=== PATIENT | male | born 1980 | race Caucasian/White ===

== ENCOUNTER 2016-09-11 11:44 | Emergency (ER) | payer SELFPAY ==
[~2016-09-11] VITALS: Ht 172.7 cm; Wt 63.6 kg
[~2016-09-11 11:44] MED LIST: FLEXERIL10 MG PO; LORTAB 5/500 501 TAB PO; NAPROSYN500 MG PO; NO HOME MEDICATIONS; NORCO 325 MG-51 TAB PO; TRAZODONE50 MG PO
[2016-09-11 11:52] VITALS: BP 129/87; PULSE 92; TEMP 98
[2016-09-11] MEDS ORDERED: PREDNISONE20 MG PO (13:23)
== END 2016-09-11 13:39 | disposition home or self-care (01) ==
LOC: COL.ER 11:44
DX: M25.512 Pain in left shoulder (principal); M54.12 Radiculopathy, cervical region; G89.29 Other chronic pain
CPT/HCPCS: J1885

== ENCOUNTER 2017-08-25 18:26 | Emergency (ER) | payer SELFPAY ==
[~2017-08-25] VITALS: Ht 175.3 cm; Wt 63.6 kg
[~2017-08-25 18:26] MED LIST changes: +PREDNISONE20 MG PO
[2017-08-25 18:29] VITALS: TEMP 98
[2017-08-25] MEDS ORDERED: CEPHALEXIN500 M1 PO (19:56)
[2017-08-25] MEDS ORDERED: NORCO 325 MG-51 TAB PO (19:56)
[2017-08-25 20:24] VITALS: BP 134/100; PULSE 72
== END 2017-08-25 20:43 | disposition home or self-care (01) ==
LOC: COL.ER 18:26
DX: S61.210A Laceration without foreign body of right index finger without damage to nail, initial encounter (principal); Z23 Encounter for immunization; F12.90 Cannabis use, unspecified, uncomplicated; Y92.009 Unspecified place in unspecified non-institutional (private) residence as the place of occurrence of the external cause; W31.9XXA Contact with unspecified machinery, initial encounter
CPT/HCPCS: J0690

== ENCOUNTER 2019-11-13 17:35 | Emergency (ER) | payer SELFPAY ==
[~2019-11-13] VITALS: Ht 175.3 cm; Wt 61.4 kg
[~2019-11-13 17:35] MED LIST changes: +CEPHALEXIN500 M1 PO
[2019-11-13 17:46] VITALS: BP 123/84; TEMP 99.1
[2019-11-13 19:05] VITALS: PULSE 88
== END 2019-11-13 19:05 | disposition home or self-care (01) ==
LOC: COL.ER 17:35
DX: M67.442 Ganglion, left hand (principal); F17.210 Nicotine dependence, cigarettes, uncomplicated

== ENCOUNTER 2020-01-16 01:27 | Emergency (ER) | payer SELFPAY ==
[~2020-01-16] VITALS: Ht 175.3 cm; Wt 61.4 kg
[2020-01-16 01:33] VITALS: TEMP 97
[2020-01-16 02:50] VITALS: BP 138/87; PULSE 86
== END 2020-01-16 02:50 | disposition home or self-care (01) ==
LOC: COL.ER 01:27
DX: S91.311A Laceration without foreign body, right foot, initial encounter (principal); W26.0XXA Contact with knife, initial encounter; Y92.009 Unspecified place in unspecified non-institutional (private) residence as the place of occurrence of the external cause

== ENCOUNTER 2020-01-26 19:14 | Emergency (ER) | payer SELFPAY ==
[~2020-01-26] VITALS: Ht 175.3 cm; Wt 61.4 kg
[~2020-01-26 19:14] MED LIST changes: -BACTRIM DS 8001 TAB PO
[2020-01-26 19:37] VITALS: BP 123/69; TEMP 98.2
[2020-01-26] MEDS ORDERED: CEPHALEXIN500 M1 PO (19:47)
[2020-01-26] MEDS ORDERED: BACTRIM DS 8001 TAB PO (19:47)
[2020-01-26 20:05] VITALS: PULSE 98
== END 2020-01-26 20:10 | disposition home or self-care (01) ==
LOC: COL.ER 19:14
DX: L03.115 Cellulitis of right lower limb (principal); F17.210 Nicotine dependence, cigarettes, uncomplicated

== ENCOUNTER → 2020-01-26 | Outpatient (CLI) | payer SELFPAY ==
[~2020-01-26] MED LIST changes: +BACTRIM DS 8001 TAB PO
[2020-01-26 19:10] VITALS: BP 123/69; PULSE 117; TEMP 98.2
== END ==
LOC: COL.ER 18:50
DX: Z48.02 Encounter for removal of sutures (principal)

== ENCOUNTER 2020-07-15 00:25 | Emergency (ER) | payer SELFPAY ==
[~2020-07-15] VITALS: Ht 177.8 cm; Wt 63.6 kg
[~2020-07-15 00:25] MED LIST changes: +BACTRIM DS 8001 TAB PO
[2020-07-15 00:29] VITALS: TEMP 98.4
[2020-07-15 01:22] LABS: HEMATOCRIT 45.6 % (42.0-52.0); HEMOGLOBIN 14.9 g/dl (13.5-18.0); MEAN CELL VOLUME 89 fl (80.0-100.0); MEAN CORPUSCULAR HEMOGLOBIN 29 pg (27.0-31.0); MEAN CORPUSCULAR HGB CONC 33 g/dl (33.0-37.0); MEAN PLATELET VOLUME 8.5 fl (7.4-10.4); PLATELET COUNT 306 K/mm3 (130-400); RED BLOOD COUNT 5.15 M/mm3 (4.20-5.60); REDCELL DISTRIBUTION WIDTH-CV 12.6 % (11.5-14.5)
[2020-07-15 01:33] LABS: CALCIUM 9.1 mg/dL (8.4-10.2); URIC ACID 4.8 mg/dL (3.5-8.5)
[2020-07-15 01:51] LABS: BAND 4 % (0-10); EOSINOPHIL 6 % (0-4); LYMPHOCYTE 12 % (20.0-51.0); NEUTROPHILS 71 % (42.0-75.2)
[2020-07-15 01:52] LABS: PLATELET ESTIMATE NORMAL (NORMAL)
[2020-07-15] MEDS ORDERED: MOTRIN 400400 MG/TAB PO (03:26)
[2020-07-15 03:29] LABS: SYNOVIAL FLUID APPEARANCE TURBID; SYNOVIAL FLUID COLOR RED; SYNOVIAL FLUID RBC 69000 /mm3 (0-0); SYNOVIAL FLUID WBC 187 /mm3 (200-600)
[2020-07-15 03:48] VITALS: BP 132/89; PULSE 85
== END 2020-07-15 03:48 | disposition home or self-care (01) ==
LOC: COL.ER 00:25
PROVIDERS: Emergency Medicine
DX: M25.562 Pain in left knee (principal)
CPT/HCPCS: J1885; J2270; J3010

== ENCOUNTER 2020-07-15 12:30 | Inpatient (IN) | payer SELFPAY ==
[~2020-07-15] VITALS: Ht 177.8 cm; Wt 64.2 kg
[~2020-07-15 12:30] MED LIST changes: +MOTRIN 400400 MG/TAB PO
--- NOTE | 2020-07-15 13:25 | NUR ---
PATIENT IS A DIRECT ADMITED FROM [facility]. ORIENTED BUT VERY DROWSY. PATIENT IS UNABLE TO STAY AWAKE AND FALLS ASLEEP DURING ASSESSMENT. FRIEND AT BEDSIDE REPORTS HE WAS SENT HOME WITH PAIN MEDS FROM ER, NO DOCUMENTATION NOTED FROM ER. ORTHO CONFIRMED PATIENT WAS SENT HOME WITH FOUR NORCO TABS AND RECEIVED IV MORPHINE & FENTANYL WHILE IN ER. DURING ASSESSMENT, FRIEND CONFIRMED PATIENT IS A CIGARETTE SMOKER AND HAS SMOKED POT IN THE LAST 48 HOURS, NO ALCOHOL. VSS. PATIENT C/O PAIN IN LEFT KNEE AND REPORTS PAIN IS BETTER WHEN NOT MOVED. LEFT KNEE IS SWOLLEN, RED, AND TENDER TO TOUCH. POSITIVE PEDAL PULSES TO BLE. HEAD TO TOE ASSESSMENT COMPLETE. NPO TILL ORTHO ROUNDS. ORIENTED FRIEND TO ROOM. PATIENT SLEEPING WITH CALL LIGHT IN REACH.
[2020-07-15 13:30] VITALS: BP 121/62; PULSE 80; TEMP 98.6
--- NOTE | 2020-07-15 13:42 | NUR ---
ORTHO AT BEDSIDE
[2020-07-15 16:00] VITALS: BP 119/69; PULSE 86; TEMP 98.2
--- NOTE | 2020-07-15 16:45 | NUR ---
PATIENT NOW MORE AWAKE AND C/O INCREASED PAIN IN LEFT KNEE. ELEVATED LLE WITH PILLOWS AND APPLIED A FRESH ICE PACK. GAVE PRN RADHA, ONE TAB. PATIENT RESTING WITH CALL LIGHT IN REACH.
--- NOTE | 2020-07-15 19:12 | NUR ---
Resting quietly in bed, SO at bedside, denies needs at this time, uses call perez appropriately, no c/o at this time, ice to L knee, VS stable.
[2020-07-15 20:25] VITALS: BP 120/69; PULSE 84; TEMP 98.7
--- NOTE | 2020-07-15 20:55 | NUR ---
Call placed to Sharon Hennessy re: pain managment- see new orders. UPdated paitent on plan of care re: pain managment - verbalized understanding.
[2020-07-16] VITALS (8 sets, daily range): BP systolic 120–142; BP diastolic 69–123; PULSE 74–90; TEMP 98.4–99.4
[2020-07-16 06:42] LABS: HEMOGLOBIN 15.2 g/dl (13.5-18.0); MEAN CELL VOLUME 91 fl (80.0-100.0); MEAN CORPUSCULAR HEMOGLOBIN 29 pg (27.0-31.0); MEAN CORPUSCULAR HGB CONC 32 g/dl (33.0-37.0); MEAN PLATELET VOLUME 8.9 fl (7.4-10.4); PLATELET COUNT 289 K/mm3 (130-400); RED BLOOD COUNT 5.18 M/mm3 (4.20-5.60); REDCELL DISTRIBUTION WIDTH-CV 12.6 % (11.5-14.5)
[2020-07-16 06:52] LABS: ALBUMIN 3.6 gm/dL (3.5-5.0); BILIRUBIN,TOTAL 0.4 mg/dL (0.0-1.0); CALCIUM 8.6 mg/dL (8.4-10.2); CREATININE, serum 0.96 (0.66-1.25); POTASSIUM 4.6 mmol/L (3.4-5.0); TOTAL PROTEIN 6.6 gm/dL (6.4-8.2)
[2020-07-16 07:40] LABS: EOSINOPHIL 2 % (0-4); HYPOCHROMIA 2+; LYMPHOCYTE 15 % (20.0-51.0); NEUTROPHILS 73 % (42.0-75.2); PLATELET ESTIMATE NORMAL (NORMAL)
--- NOTE | 2020-07-16 08:52 | NUR ---
Vancomycin Initial Dosing Pharmacy Note Ordering provider: Sharon Kuo MD Indication/duration: Cellulitis, 2 days LABS: SCr 0.96, CrCl~82, GFR 87 Recommendation: Will give Vancomycin 1.25 gm IV x1 loading dose, then Vancomycin 1 gm IV q8h. Pharmacy will continue to follow. Loading dose: 1.25 grams Maintenance dose: 1 gram every 8 hours Trough goal: 10-15 ug/mL
--- NOTE | 2020-07-16 11:00 | NUR ---
Patient started having increased pain around 0800. He stated his pain was a 9 on a 0-10 scale. He stated the pain gets really intense at times. Patient was in tears and couldn't lay still in the bed. Notified Ortho and they increased his dilauded dose. Patient has a large, red, swollen knee. There is one small scab to the knee but no drainage. Knee is warm and soft to the touch. Ice packe placed to left knee. Denies nausea. He is upset because he doesn't understand why he is staying the night. Explained he needs IV antibiotics for the infected knee. He verbalized understanding. No other changes at this time. Call light within reach.
--- NOTE | 2020-07-16 11:44 | NUR ---
JUAN jeffries with patient to conduct intake evaluation. Patient lives at home alone in [place]. Patient does not have DPOA and is not interested in paperwork at this time. Patient does not have PCP but was interested in obtaining MD with [facility] in [place]. RN was notified. Patient uses [facility] for medications. Patient denies needing assistance with ADLs and requires no DME. Patient denies needing assistance with affording medications. Patient plans to return home with friend Pavithra Galan (P# [phone]) providing transportation. Patient also lists friend Wilbert Ponce ([phone]). Patient will not discharge home today 07/16
--- NOTE | 2020-07-16 18:30 | NUR ---
Patient has been doing better this afternoon. His knee is still swollen and red. His antibiotics were switched to Vancomycin. Offered to get him in the shower this afternoon, he wanted to wait until he got clean clothes. Pain has better controlled this afternoon. No other changes at this time. Call light within reach.
--- NOTE | 2020-07-16 19:25 | NUR ---
Awake, alert, oriented x 3, verbal with clear speech, L Knee with redness, warmth and swelling noted, ice pack in place, pain managment reviewed with john, updated on plan of care, antibiotic change to Vanco, verbalized understanding, call ana w/i reach.
--- NOTE | 2020-07-17 03:47 | NUR ---
Patient resting quietly, states "pain is improving", had shower on shift,tolerating IV abt w/o difficulty, NPO status started at 12mn due to reassessment for surgical intervention, call ana w/i sharif.
[2020-07-17 04:02] VITALS: BP 117/81; PULSE 71; TEMP 98.4
[2020-07-17 06:02] LABS: HEMOGLOBIN 14.6 g/dl (13.5-18.0); MEAN CELL VOLUME 87 fl (80.0-100.0); MEAN CORPUSCULAR HEMOGLOBIN 29 pg (27.0-31.0); MEAN CORPUSCULAR HGB CONC 33 g/dl (33.0-37.0); MEAN PLATELET VOLUME 8.9 fl (7.4-10.4); PLATELET COUNT 265 K/mm3 (130-400); RED BLOOD COUNT 5.05 M/mm3 (4.20-5.60); REDCELL DISTRIBUTION WIDTH-CV 12.6 % (11.5-14.5)
[2020-07-17 06:09] LABS: CALCIUM 8.7 mg/dL (8.4-10.2); CREATININE, serum 0.79 (0.66-1.25); POTASSIUM 4.3 mmol/L (3.4-5.0)
[2020-07-17 07:25] VITALS: BP 122/81; PULSE 72; TEMP 98.1
[2020-07-17] MEDS ORDERED: BACTRIM DS 8001 TAB PO (09:00)
[2020-07-17] MEDS ORDERED: NORCO 325 MG-51 TAB PO (09:01)
--- NOTE | 2020-07-17 10:45 | NUR ---
Patient is discharging home. Discharge instructions discussed with patient. No questions verbalized. INT discontinued after morning dose of vanc. Patient is aware he has prescriptions to garbage pick up man at [facility]. All belongings packed up and sent with patient. Explained to call Gh[facility]ala Saturday for a follow up appointment. Explained he needs to get labs drawn before his appointment on Saturday with Ortho. Ortho will call him for his follow up. Copies of discharge instructions sent with patient. Patient walked out via wheel chair by Jace.
== END 2020-07-17 10:50 | disposition home or self-care (01) | DRG 558 ==
LOC: SURG 13:10
PROVIDERS: Physician Assistant; ADMIT Student in an Organized Health Care Education/Training Program
DX: M71.162 Other infective bursitis, left knee (principal); L03.116 Cellulitis of left lower limb; F17.210 Nicotine dependence, cigarettes, uncomplicated; F12.90 Cannabis use, unspecified, uncomplicated
CPT/HCPCS: 99222-AI; 99232-AI; 99239; J0690; J1170; J1650; J3370; J7050

== ENCOUNTER 2022-06-28 12:34 | Emergency (ER) | payer SELFPAY ==
[~2022-06-28] VITALS: Ht 175.3 cm; Wt 63.6 kg
[2022-06-28 12:37] VITALS: BP 132/86; PULSE 90; TEMP 98.4
[2022-06-28] MEDS ORDERED: CEPHALEXIN500 M1 PO (14:12)
== END 2022-06-28 14:27 | disposition home or self-care (01) ==
LOC: COL.ER 12:34
DX: S61.211A Laceration without foreign body of left index finger without damage to nail, initial encounter (principal); Z28.310 Unvaccinated for COVID-19; W26.8XXA Contact with other sharp object(s), not elsewhere classified, initial encounter